=== PATIENT | male | born 1960 | race Caucasian/White ===

== ENCOUNTER 2021-04-05 08:08 | Outpatient (CLI) | payer MEDICARE, MEDICAID, SELFPAY ==
--- NOTE | 2021-04-05 15:40 | ONC FU_ITS ---
Dr. Wan follow up note Patient: Omari Rose Unit #: [id number]: 1960 Dicatated By: Isi Wan M.D.Date of Visit:Apr 05, 2021 Onc Med Follow-up/Prog Note History of Present Illness: Mr. Rose is a 60-year-old gentleman recently diagnosed with esophageal cancer. He presented to his primary care with dysphagia for 3-4 months. It was associated with vomiting initiated by swallowing. He was only able to tolerate a soft diet and had lost around 80 pounds in the last 6 months. He states he's had a long history of acid reflux as well. He underwent EGD on 02/02/2018. This revealed a partially obstructing large sized, friable, fungating, ulcerated mass that measured 5.2 cm in the lower third of the esophagus. The mass was malignant in appearance and was actively bleeding. It was biopsied and this pathology did confirm moderately differentiated infiltrating adenocarcinoma. He had CT of the chest abdomen pelvis on 02/02/2018. This reported diffuse thickening involving the distal esophagus and GE junction extending to the proximal stomach. There were numerous normal-sized mediastinal and paratracheal lymph nodes. The largest measured 8-9 mm and were indeterminate. Enlarged upper abdominal lymph nodes were also noted with the largest being 16 mm at the EG junction and more suspicious for metastatic disease. A few additional surrounding prominent gastrohepatic lymph nodes and slightly prominent retrocrural lymph nodes were noted. An 11 mm left adrenal lesion was felt to be most likely an adrenal adenoma. However metastatic disease was not entirely excluded. Mr. Rose had PET/CT imaging on 02/17/2018. The final report indicated hypermetabolic gastroesophageal junction malignancy. There was no evidence of local or distal metastatic disease. There is scarring in the right upper lobe of the lung but that was next FDG negative. The described mediastinal lymph nodes were radiographically benign and without significant FDG uptake. The uptake at the gastroesophageal junction had an SUV of 6.1. Mr. Rose was evaluated by Dr. Briscoe in [facility]. He has been offered treatment with chemoradiation Mr. 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 No pleural enhancement. New retroperitoneal soft tissue mass showing heterogeneous enhancement and slightly spiculated margin abutting aorta and adjacent third portion of duodenum this measured 4.9 x 4.5 x 3.4 cm showing partial encasement of SMA. No sign of bowel obstruction. New enhancing soft tissue mass in the right gluteus bev of measuring 3.9 x 2.7 cm likely metastatic. Stable somewhat nodular contour to both adrenal glands without obvious progression. Cirrhotic appearance to the liver without definite suspicious lesion. Moderate volume ascites in the abdomen and pelvis. Came for follow-up, complaining of generalized weakness and fatigue, nausea vomiting even with belching, off and on blurred vision, patient is consuming marijuana, since his last visit to our practice on November 19, 2018, patient underwent right BKA for diabetic foot and recently diagnosed with left pleural effusion and CT scan of the chest abdomen pelvis done on March 26, 2021 at [facility] showed postoperative changes of previous esophagectomy and gastric pull-through procedure and large relatively simple appearing left pleural effusion causing significant atelectasis of left lung. No pleural enhancement. New retroperitoneal soft tissue mass showing heterogeneous enhancement and slightly spiculated margin abutting aorta and adjacent third portion of duodenum this measured 4.9 x 4.5 x 3.4 cm showing partial encasement of SMA. No sign of bowel obstruction. New enhancing soft tissue mass in the right gluteus bev of measuring 3.9 x 2.7 cm likely metastatic. Stable somewhat nodular contour to both adrenal glands without obvious progression. Cirrhotic appearance to the liver without definite suspicious lesion. Moderate volume ascites in the abdomen and pelvis. Patient underwent left thoracentesis about 2 days ago, cytology is pending Patient denies any fever or chills denies any hemoptysis or hematemesis denies any melena hematochezia, denies any jaundice but poor nutrition and significant weight loss, as per patient he used to weigh 350+ prior to esophageal cancer and now weighs around 170 pounds. Medications: CeleBREX 1 Capsule (of 200 mg) Capsule Oral daily, Gabapentin (300 mg) Capsule Oral Take as Directed, HumaLOG KwikPen 4 Unit(s) Subcutaneous t.i.d., Hydrocodone-Acetaminophen 1 Tablet (of 10-325 mg) Oral q 6 hours, Lantus 15 Unit(s) (of 100 Units/mL) Subcutaneous b.i.d., MetFORMIN HCl 1 Tablet (of 1000 mg) Oral b.i.d., Pantoprazole Sodium 1 Tablet (of 40 mg) Tablet, enteric coated Oral b.i.d. Allergies: No Known Allergies. Review of Systems: Review of Systems is not available for this patient. Vital Signs: Performed on Apr 05, 2021 08:41 Height - 77.00 in Weight - 170.6 lbs (LOW) BSA - 2.09 sq.m BMI - 20.23 Temperature - 97.4 F (LOW) Pulse - 109 /min (HIGH) Respiration - 18 /min BP - 117/78 mm(hg) O2 Sat - 99 % Pain - 5 Fatigue - 5 Performance Status: 2 - Ambulatory/capable of all self-care, unable to perform any work activities. Up and about more than 50% of waking hours. (ECOG) Physical Examination: ENMT - Poor oral hygiene, no mouth sores, no thrush, no jaundice no cervical lymphadenopathy, Respiratory - Decreased breath sound at left lung base with a few basilar rales otherwise clear, Cardiovascular - Regular rate and rhythm of heart, Abdomen - Soft, bowel sounds present, Extremities - Status post right BKA, left leg trace edema. Lab/Imaging: Most recent lab results are not available for this patient. Impression: [Recurrence of disease versus second primary based on f/u CT scan of the chest abdomen pelvis done on March 26, 2021 at [facility] showed postoperative changes of previous esophagectomy and gastric pull-through procedure and large relatively simple appearing left pleural effusion causing significant atelectasis of left lung. No pleural enhancement. New retroperitoneal soft tissue mass showing heterogeneous enhancement and slightly spiculated margin abutting aorta and adjacent third portion of duodenum this measured 4.9 x 4.5 x 3.4 cm showing partial encasement of SMA. No sign of bowel obstruction. New enhancing soft tissue mass in the right gluteus bev of measuring 3.9 x 2.7 cm likely metastatic. Stable somewhat nodular contour to both adrenal glands without obvious progression. Cirrhotic appearance to the liver without definite suspicious lesion. Moderate volume ascites in the abdomen and pelvis.^ h/o Infiltrating adenocarcinoma, moderately differentiated, identified within submucosa, per biopsy/EGD done on 02/02/2018 T1b or T2, Nx, MX clinical stage IB Dysphagia and weight loss due to above Diabetes mellitus insulin-dependent. Hypertension offered concurrent therapy with chemoradiation. Mr Rose began weekly CArboplatin/Taxol on 02/27/2018. It is noted that he has also insulin-dependent diabetic and was having some difficulties with his glucose with the steroid premedication. so requested to change his treatment plan in regards to the chemotherapy to Carboplatin/Abraxane. And concluded his combined chemoradiation on 04/10/2018 This will limit the need for steroid premeds. He is insulin-dependent diabetic and his sugars have been somewhat difficult since adding the steroids. Follow-up CT scan of chest abdomen pelvis done on 05/09/2018 showed moderate improvement in the malignancy at GE junction. No increase in size of mediastinal, hilar or gastrohepatic or paraesophageal lymph nodes. No metastatic disease to the liver. Patient was referred to [facility] for surgical evaluation and on 05/24/2018 he underwent What[facility] Jesus esophagectomy. 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 And he required R talk pleurodesis, redo right thoracotomy and ligation of thoracic duct X2 and thoracic duct embolization, but eventually everything sealed. Final pathology report showed segment esophagus with no evidence of malignancy 0 out of 3, left gastric, 0 out of 2 lymph node lesser curvature, one lymph node 9R, 0 out of 4, station 7 lymph nodes, none of them showed any evidence of malignancy Right sixth rib was resected was negative for carcinoma pleural and adjacent tissue, negative for carcinoma. Plan: .Discussed with patient regarding his CT scan of chest abdomen pelvis findings which showed possibility of recurrence of esophageal cancer or second primary, patient recently underwent left thoracentesis, cytology is pending, patient is comfortable with marijuana support but complaining of persistent nausea vomiting, on CT scan of abdomen there was no obvious intestinal obstruction but patient has a mass close to duodenum, other concern is off and on blurred vision could be due to marijuana but there is a concern for possibility of metastatic disease to the brain which can explain both off-and-on blurred vision as well as persistent nausea vomiting so we will consider MRI scan of the brain to rule out brain mets and as patient is not maintaining sufficient nutrition and hydration because of persistent nausea vomiting, will consider J-tube placement and also consider Port-A-Cath placement for better IV access. As far as confirmation of malignancy is concerned, patient recently underwent left thoracentesis, if it shows no evidence of malignancy then next biopsy site would be right gluteus bev lesion, so we will request surgery to consider biopsy of that lesion, regardless of what left thoracentesis cytology shows, reasoning behind that is to get enough tissue to do molecular profiling and to identify targetable therapeutic mutations and if needed cancer type ID. Patient was advised to be careful with risk of aspirations so try small meals but more often and sit straight while feeding. And take other aspiration precautions. Also discussed about his prognosis which appear guarded and patient lives alone but his sister lives close by who is also having some issues with her own health, patient has 1 daughter who is a RN and lives in [place]. Patient will return to clinic after MRI scan of the brain with CBC CMP, hopefully by that time will have his pleural fluid cytology available for review. Signed By: Isi Wan M.D. <<Signature on File>>
== END 2021-04-05 08:09 | disposition home or self-care (01) ==
LOC: ONCMED 08:14
PROVIDERS: PCP Family Medicine; Visit Provider Internal Medicine Hematology & Oncology
DX: C34.02 Malignant neoplasm of left main bronchus (principal); C79.31 Secondary malignant neoplasm of brain; C78.7 Secondary malignant neoplasm of liver and intrahepatic bile duct; C79.71 Secondary malignant neoplasm of right adrenal gland; C79.72 Secondary malignant neoplasm of left adrenal gland; R13.10 Dysphagia, unspecified; R63.4 Abnormal weight loss; E11.9 Type 2 diabetes mellitus without complications; I10 Essential (primary) hypertension; Z79.4 Long term (current) use of insulin; Z79.899 Other long term (current) drug therapy; Z92.21 Personal history of antineoplastic chemotherapy; Z92.3 Personal history of irradiation
CPT/HCPCS: 99214